=== PATIENT | male | born 1975 | race Caucasian/White ===

== ENCOUNTER 2024-12-11 10:31 | Emergency (ER) | payer BC, SELFPAY ==
--- NOTE | ~2024-12-11 | XR_ITS ---
EXAMINATION: XR LUMBOSACRAL SPINE CLINICAL INFORMATION: low back pain COMPARISON: None available. TECHNIQUE: AP and lateral views FINDINGS: S-shaped curvature of the lumbar spine. Mild endplate sclerosis at multiple levels with decreased intervertebral disc height in the lower thoracic and upper lumbar spine. No acute cortical disruption or malalignment. Facet joint hypertrophy at L5-S1. Degenerative changes in the symphysis pubis and coxofemoral joints. Vascular calcifications, aorta. XR/XR lumbar spine 2-3V IMPRESSION: Multilevel thoracolumbar spondylosis without acute fracture or listhesis. Electronically signed by: Kee Medley MD 12/11/2024 11:15 AM EDT
[2024-12-11 10:54] VITALS: BP 179/112; PULSE 90; RESP 16; TEMP 36.9; O2SAT 95; BMI 41.4
--- NOTE | 2024-12-11 10:54 | ED_ITS ---
HPI - General Adult General Chief complaint: Back Pain/Injury Stated complaint: lower back pain Time Seen by Provider: 12/11/24 11:40 Source: patient Mode of arrival: ambulatory Limitations: no limitations History of Present Illness ED Provider: DR. 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 No fever, no chills, no urinary incontinence, no stool incontinence. Related Data Previous Rx's ?Medication ?Instructions ?Recorded cyclobenzaprine 10 mg tablet 10 mg PO TID PRN muscle s pasm #14 12/11/24 tabs ibuprofen 800 mg tablet 800 mg PO Q8H PRN pain #20 t abs 12/11/24 oxycodone 5 mg tablet 5 mg PO Q8H PRN pain #10 tab s 12/11/24 Allergies Allergy/AdvReac Type Severity Reaction Status Date / Time No Known Allergies Allergy Verified 12/11/24 10:56 Review of Systems Review of Systems: All other systems are reviewed and are negative Constitutional: Reports as per HPI and Reports no additional constitutional complaints Eyes: Reports as per HPI and Reports no additional eye complaints Reports system reviewed and no additional complaints, except as documented Cardiovascular: Reports as per HPI and Reports no additional cardiovascular complaints Respiratory: Reports as per HPI and Reports no additional respiratory complaints Gastrointestinal: Reports as per HPI and Reports no additional gastrointestinal complaints Genitourinary: Reports no additional female genitourinary complaints Musculoskeletal: Reports no additional musculoskeletal complaints Skin/Breast: Reports system reviewed and no additional complaints, except as docu Psychiatric: Reports no additional psychiatric complaints Endocrine: Reports no additional endocrine complaints Hematologic/Lymphatic: Reports no additional hematologic/lymphatic complaints Allergic/Immunologic: Reports no additional allergic/immunologic complaints Reports system reviewed and no additional complaints, except as documented and Reports Abnormal speech present [facility] Social History Social History Advance Directives: No Advance Directives Information Provided: Yes Physical Exam ED Vital Signs: Vital Signs - 24 hr 12/11/24 10:54 Temperature 98.4 F Pulse Rate 90 Respiratory Rate 16 Blood Pressure 179/112 H Pulse Oximetry 95 Oxygen Delivery Method Room Air BMI result Body Mass Index 41.4 Vital signs have been reviewed and appear to be correct. Blood pressure elevated. Heart rate normal. Respiratory rate normal. Temperature normal. Oxygen saturation normal. Appearance: Alert. Oriented X3. No acute distress. Head: Normal external exam. Normocephalic. Atraumatic. No Parikh signs noted. No raccoon eyes noted Eyes: PERRLA. EOMI. Conjunctiva and sclera normal. Eyelids normal. ENT: TM's Normal. Pharynx normal. Uvula midline. Moist mucous membranes. No trismus noted. No drooling noted. No muffled voice noted. Neck: Normal inspection. Neck supple. FROM. No adenopathy. Thyroid Normal. No meningeal signs. No neck mass noted. CVS: Normal heart rate and rhythm. Heart sound normal. No murmurs noted. Pulses normal throughout. Respiratory: No respiratory distress. Painless inspiration. Breath sounds normal. No wheezes/rales/rhonchi noted. Chest nontender. No accessory muscle usage noted or decreased air movement noted. Abdomen: Soft and nontender. Bowel sounds normal in all 4 quadrants. No distention noted. No organomegaly noted. No visible injury noted. Back: No CVA tenderness. Full range of motion noted. Skin: Skin warm and dry. Normal skin color. Normal skin turgor. No rashes/lesions/lacerations noted. Extremities: No lower extremity edema. Extremities exhibit normal range of motion. Extremities nontender. Neuro: Mental status: Normal attention, orientation, memory, and affect. Cranial nerves: Pupils are equal, round and reactive to light, EOMI, visual salguero are fall, face is symmetric, facial sensations are normal. Motor examination normal muscle tone, strength to 4 extremities. DTR are +2, planter's are flexor. Sensory exam; normal coordination, no ataxia, gait stable. Cerebellar exam: Csalpe-ag-fbip and ocfv-vw-qfvs is normal. Extrapyramidal system: No tremors, no rigidity with normal facial expressions. Pronator drift not present Course Course Course Narrative: Rapid medical examination performed in triage by Anamaria Guerin PA-C. Patient is a 49 year old assigned male at presenting to the emergency department with low back pain. Patient states that he was seen months ago for back pain and was given lidocaine patches which helped then but now over the last 3 days he has had new back pain and that patches are not helping. Detailed physical exam and review of systems are deferred to the mental health clinician. Imaging ordered. Patient placed back in the waiting room pending room availability and results. Reevaluation(s) Reevaluation #1: Feels much better, no neurological deficit, no urinary or stool incontinence. Feels better with pain medication. As I discussed with the patient will need rest, heating pad, change lifestyle including lose weight, eating healthy, exercise. Time: 13:00 Medical Decision Making Differential Diagnosis Differential Diagnoses: The differential diagnosis associated with the presentation includes ( Lumbar spine, DJD, fracture, myofascial back pain, neurological deficit.) Admission/Observation Consideration of admission/observation: Escalation of care including admission/observation considered Independent Interpretation I performed an independent interpretation of an: Plain X-Ray ( Lumbar lumbar spine:Multilevel thoracolumbar spondylosis without acute fracture or listhesis. ) Radiology Impression Discussion of test interpretation with radiology: I have reviewed the radiologist's reading. Discharge Plan Discharge Clinical Impression: Strain of lumbar region Patient Disposition: Home, Self-Care Instructions: Muscle Strain (ED), Back Pain (ED) Additional Instructions: abstain from heavy lifting, sitting for long time, prolonged immobilization, pending, pushing heavy stuff. Take the medicine as prescribed. Follow-up with your primary doctor to get a refill for chronic pain management. Prescriptions: New oxycodone 5 mg tablet 5 mg PO Q8H PRN (Reason: pain) Qty: 10 0RF Rx Instructions: Partial Fill upon patient request. cyclobenzaprine 10 mg tablet 10 mg PO TID PRN (Reason: muscle spasm) Qty: 14 0RF ibuprofen 800 mg tablet 800 mg PO Q8H PRN (Reason: pain) Qty: 20 0RF Print Language: Spanish
[2024-12-11 12:35] VITALS: BP 150/103; BP 159/110; PULSE 84; RESP 18; TEMP 36.8; O2SAT 95
[2024-12-11] MEDS: oxyCODONE HCl Immed Release 5 MG TABLET PO (12:40)
--- OUTSIDE RECORDS SUMMARY | 2024-12-11 13:04 | XMS_ITS | Clinical Summary ---
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 Role Phone Unavailable Primary Care Provider Unavailabl e Social History Tobacco Use Types Packs/Day Years Used Date Smoking Tobacco: Never Assessed Sex and Gender Information Value Date Recorded Sex Assigned at Not on file Legal Sex Male 11:26 PM EST Gender Identity Not on file Sexual Orientation Not on file Plan of Treatment Health Maintenance Due Date Last Done Comments DTaP,Tdap,and Td Vaccines (1 - Tdap) 02/01/1995 Hepatitis B Vaccines (1 of 3 - 19+ 3-dose series) 02/01/1995 Cholesterol Screening (Lipid Panel) 01/07/2024 Colorectal Cancer Screening: Colonoscopy 01/07/2024 HIV Screening 01/07/2024 Hepatitis C Screening 01/07/2024 Social Influencers of Health Screening 01/07/2024 Depression Screening 03/15/2024 COVID-19 Vaccine (1 - 2023-2 5 season) 2024 Influenza Vaccine (#1) 2024 HIB Vaccines Aged Out No longer eligi ble based on patient's age to complete this topic HPV Vaccines Aged Out No longer eligi ble based on patient's age to complete this topic Hepatitis A Vaccines Aged Out No long er eligible based on patient's age to complete this topic IPV Vaccines Aged Out No longer eligi ble based on patient's age to complete this topic MMR Vaccines Aged Out No longer eligi ble based on patient's age to complete this topic Meningococcal ACWY Vaccine Aged Out N o longer eligible based on patient's age to complete this topic Meningococcal B Vaccine Aged Out No l onger eligible based on patient's age to complete this topic Pneumococcal Vaccine: Pediat rics (0 to 5 Years) and At-Risk Patients (6 to 49 Years) Aged Out No longer eligible b ased on patient's age to complete this topic RSV Immunization Patients Un richelle 20 months Aged Out No longer eligible b ased on patient's age to complete this topic Varicella Vaccines Aged Out No longer eligible based on patient's age to complete this topic
[2024-12-11 14:05] VITALS: BP 159/110; PULSE 84; RESP 18; TEMP 36.8; O2SAT 95
== END 2024-12-11 14:06 | disposition home or self-care (01) ==
PROVIDERS: Emergency Provider Emergency Medicine
DX: S39.012A Strain of muscle, fascia and tendon of lower back, initial encounter (principal); X58.XXXA Exposure to other specified factors, initial encounter; Y93.9 Activity, unspecified; Y92.9 Unspecified place or not applicable; Y99.8 Other external cause status
CPT/HCPCS: 72100; 99283; 99284

== ENCOUNTER → 2024-12-11 10:55 | Outpatient (BNV) | payer BC, SELFPAY | PROVIDERS: Emergency Provider Emergency Medicine; Visit Provider Radiology Diagnostic Radiology | DX: M47.815 Spondylosis without myelopathy or radiculopathy, thoracolumbar region (principal) | CPT/HCPCS: 72100 ==